=== PATIENT | female | born 1990 | race Caucasian/White ===

== ENCOUNTER 2017-05-09 20:31 | Emergency (ER) | payer OTHER ==
--- NOTE | 2017-05-09 21:14 | ERNOTE ---
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 Absent: sore throat, throat swelling Respiratory: Absent: shortness of breath, wheezing Cardiology: Absent: chest pain, palpitations Gastrointestinal/Abdominal: Absent: nausea, vomiting Neurological: Present: headache - frontal, pressure - Patient's Past Medical History Patient History - Medical: GERD, Migraines Patient History - Cardiac/Respiratory: No pertinent hx Patient History - Cancer: No Hx of Cancer Patient History - Surgical Procedures: LMP (Calendar): 05/04/17 - Social History Living Situations: home Psych History: No pertinent hx Smoking Status: Current every day smoker Alcohol Use: none Drug Use: none - Immunizations Immunizations Up to Date: Yes Hx Pneumococcal Vaccination: No History of Influenza Vaccine: Yes Physical Exam - Physical Exam General Appearance: Present: wd/wn, alert, no apparent distress Head Exam: Present: normal inspection, no evidence of injury Eye Exam: Normal inspection: bilateral, PERRL: bilateral Ears, Nose, Throat: Present: normal ENT inspection, normal pharynx Neck: Present: normal inspection, nontender Respiratory: Present: no respiratory distress, normal breath sounds, lungs clear Cardiovascular/Chest: Present: regular rate, rhythm, no murmur, normal peripheral pulses Extremity Exam: Present: normal inspection, non-tender Neurological Exam: Present: alert, oriented, normal mood/affect Skin Exam: Present: warm/dry, other - somewhat flushed Lymphatic Exam: Present: no adenopathy ED Progress - Vital Signs Patient's Vital Signs:: I have reviewed the patient's vital signs. Vital Signs: Vital Signs 05/09/17 20:37 Temperature 37.1 C Pulse Rate 83 Respiratory 18 Rate Blood Pressure 139/68 O2 Sat by Pulse 96 Oximetry - EKG EKG: NSR EKG read: Interp. by me - Progress/Reassessment Chief Complaint: Allergic Reaction Progress:: Improved Departure Clinical Impression: Adverse reaction to drug in therapeutic use - Departure Disposition: Home self-care Condition: Good Instructions: General Headache Without Cause Additional Instructions: Take the medication when you get home. Talk to your doctor about other medications for headache
[2017-05-09] MEDS ORDERED: CYCLOBENZAPRINE HCL 10 MG TABLET PO ONE (21:49)
[2017-05-09] MEDS ORDERED: CYCLOBENZAPRINE HCL 10 MG TABLET ONE ×2 (21:53→21:54)
[2017-05-09 22:08] VITALS: BP 113/80
== END 2017-05-09 22:07 | disposition home or self-care (01) ==
LOC: ER 20:31
DX: T39.8X5A Adverse effect of other nonopioid analgesics and antipyretics, not elsewhere classified, initial encounter (principal); Y92.9 Unspecified place or not applicable; F17.200 Nicotine dependence, unspecified, uncomplicated

== ENCOUNTER 2017-06-26 19:48 | Emergency (ER) | payer OTHER ==
[2017-06-26] MEDS ORDERED: NORMAL SALINE 1,000 ML IV ONE (20:50)
[2017-06-26] MEDS ORDERED: ORPHENADRINE CITRATE 30 MG/ML VIAL IV ONE (20:50)
[2017-06-26] MEDS ORDERED: KETOROLAC TROMETHAMINE 30 MG/ML VIAL IV ONE (20:50)
[2017-06-26] MEDS ORDERED: ORPHENADRINE CITRATE 30 MG/ML VIAL ONE (20:54)
[2017-06-26] MEDS ORDERED: KETOROLAC TROMETHAMINE 30 MG/ML VIAL ONE (20:54)
--- NOTE | 2017-06-26 20:56 | ERNOTE ---
Headache ER HPI - General Presenting Symptoms: headache Time Seen by Provider: 06/26/17 20:44 Source: patient Exam Limitations: no limitations - Immun/Allergies/Home Medications Immunizations: IMMUNIZATION HX Immunizations Up to Date Yes History of Influenza Vaccine No Hx Pneumococcal Vaccination No Allergies/Adverse Reactions: Allergies bee pollen Allergy (Verified 06/26/17 19:58) bee venom protein (honey bee) Allergy (Verified 06/26/17 19:58) Home Medications: HOME MEDICATIONS Omeprazole 20 mg PO DAILY 05/09/17 [Last Taken Unknown] - Pain Pain Score: 8 - History of Present Illness Narrative: onset of frontal headache earlier today. Has tried benadryl and ibuprofen without improvement. Pain is sharp and waxing / waning 4/10 at best and 8/10 at worst. Timing of Headache: gradual Quality: Present: sharp Severity Maximum: Present: severe Severity-Currently: Present: moderate Headache frequency: Present: occasional headaches Modifying Factors - (Improves): Reports: rest Associated Symptoms: Reports: nausea - mild, nasal congestion. Denies: vomiting , neck pain/stiffness Exacerbated by:: Reports: noise, movement Review of Systems - Review of Systems Constitutional: Present: recent illness - URI. Absent: fever, chills EYE: Absent: vision changes ENT: Present: nose congestion, nasal drainage Respiratory: Absent: shortness of breath Cardiology: Absent: chest pain Gastrointestinal/Abdominal: Present: nausea - mild. Absent: vomiting, diarrhea , constipation Genitourinary: Absent: frequency, dysuria Musculoskeletal: Absent: back pain, neck pain Skin: Absent: rash Neurological: Present: no symptoms reported Endocrine: Present: no symptoms reported Hematologic/Lymphatic: Present: no symptoms reported - Patient's Past Medical History Patient History - Medical: GERD, Migraines Patient History - Cardiac/Respiratory: No pertinent hx Patient History - Cancer: No Hx of Cancer Patient History - Surgical Procedures: Patient History - Other: None LMP (females 10-50): this week LMP (Calendar): 05/04/17 - Social History Living Situations: significant other Psych History: No pertinent hx Smoking Status: Current every day smoker Have you smoked in the past 12 months: Yes Do you dip or chew tobacco: No Alcohol Use: none Drug Use: none - Immunizations Immunizations Up to Date: Yes Hx Pneumococcal Vaccination: No History of Influenza Vaccine: No Physical Exam - Physical Exam General Appearance: Present: wd/wn, alert, no apparent distress Head Exam: Present: normal inspection, no evidence of injury Eye Exam: Normal inspection: bilateral, PERRL: bilateral, EOMI: bilateral Ears, Nose, Throat: Present: normal except -, nasal congestion - mild erythema, clear d/c Neck: Present: normal inspection, nontender, supple Respiratory: Present: no respiratory distress, no accessory muscle use Back Exam: Present: normal inspection, normal range of motion, no vertebral tenderness Extremity Exam: Present: normal inspection, normal range of motion, no edema Neurological Exam: Present: alert, oriented, normal mood/affect, no motor/ sensory deficits Skin Exam: Present: normal color, warm/dry Lymphatic Exam: Present: no adenopathy ED Progress - Vital Signs Vital Signs: Vital Signs 06/26/17 19:54 Temperature 36.9 C Pulse Rate 92 Respiratory 14 Rate Blood Pressure 126/78 O2 Sat by Pulse 98 Oximetry - Progress/Reassessment Chief Complaint: Headache Progress:: Improved - pt feels ready to go home Departure Clinical Impression: Migraine Qualifiers: Migraine type: without aura Status migrainosus presence: without status migrainosus Intractability: not intractable Qualified Code(s): G43.009 - Migraine without aura, not intractable, without status migrainosus - Departure Disposition: Home self-care Condition: Good Instructions: Recurrent Migraine Headache, [id number] Additional Instructions: See your regular doctor if headaches continue to return
[2017-06-26 22:47] VITALS: BP 120/82
== END 2017-06-26 22:46 | disposition home or self-care (01) ==
LOC: ER 19:48
DX: G43.009 Migraine without aura, not intractable, without status migrainosus (principal); F17.200 Nicotine dependence, unspecified, uncomplicated; K21.9 Gastro-esophageal reflux disease without esophagitis